=== PATIENT | female | born 1990 | race African-American/Black ===

== ENCOUNTER 2016-11-12 18:28 | Observation (INO) | payer MEDICAID ==
[~2016-11-12] VITALS: Ht 165.1 cm; Wt 82.6 kg
[2016-11-12] MEDS ORDERED: PREN-88 PO (19:10)
== END 2016-11-12 20:50 | disposition home or self-care (01) ==
LOC: L&D 18:28
PROVIDERS: ADMIT Obstetrics & Gynecology; ATTEND Obstetrics & Gynecology
DX: O26.893 Other specified pregnancy related conditions, third trimester (principal); R10.30 Lower abdominal pain, unspecified; Z3A.36 36 weeks gestation of pregnancy
CPT/HCPCS: 99281; G0378

== ENCOUNTER 2016-11-30 12:36 | Inpatient (IN) | payer MEDICAID, OTHER ==
[~2016-11-30] VITALS: Ht 165.1 cm; Wt 82.6 kg
[~2016-11-30 12:36] MED LIST: PREN-88 PO
[2016-11-30] MEDS ORDERED: DEXT 5%/LR + PITOCIN 20UNITS/L 1,000 ML IV SCH ×2 (12:54→13:49)
[2016-11-30] MEDS ORDERED: LIDOCAINE HCL 1% 20ML VIAL (Pyxis) INJ INFIL SCH (13:00)
[2016-11-30] MEDS ORDERED: METHYLERGONOVINE MALEATE 0.2 MG/ML IM PRN ×2 (13:00→14:00)
[2016-11-30] MEDS ORDERED: BUTORPHANOL TARTRATE 2 MG/ML VIAL IV PRN (13:00)
[2016-11-30] MEDS ORDERED: NALOXONE HCL 0.4 MG/ML 1ML VIAL IM PRN (13:00)
[2016-11-30] MEDS ORDERED: CARBOPROST TROMETHAMINE 250 MCG/ML AMPUL IM PRN (13:00)
[2016-11-30] MEDS ORDERED: LACTATED RINGERS 1,000 ML IV SCH (13:15)
[2016-11-30 13:39] LABS: BASOPHILS % 0.4 % (0.0-2.0); EOSINOPHILS % 0.6 % (0.0-5.0); HEMATOCRIT. 33.8 % (36.0-48.0); HEMOGLOBIN. 11.1 g/dL (12.0-16.0); LYMPHOCYTES % 21.5 % (20.0-50.0); MEAN CORPUSCULAR VOLUME 88.1 fL (81.0-99.0); MEAN PLATELET VOLUME 11.5 fl (7.4-10.4); MONOCYTES % 9.1 % (2.0-8.0); NEUTROPHILS % 68.4 % (40.0-76.0); PLATELET 125 x1000/uL (130-400); RED BLOOD CELL COUNT 3.84 mill/uL (4.2-5.4); RED CELL DISTRIBUTION WIDTH 16.3 % (11.6-14.6)
[2016-11-30 14:00] LABS: *AMPHETAMINES SCREEN URINE NEGATIVE (NEGATIVE); *BARBITURATES SCREEN URINE NEGATIVE (NEGATIVE); *BENZODIAZEPINES SCREEN URINE NEGATIVE (NEGATIVE); *COCAINE SCREEN URINE NEGATIVE (NEGATIVE); CANNABINOID URINE SCREEN NEGATIVE (NEGATIVE); METHADONE URINE SCREEN NEGATIVE (NEGATIVE); OPIATES URINE SCREEN NEGATIVE (NEGATIVE); PHENCYCLIDINE URINE SCREEN NEGATIVE (NEGATIVE)
[2016-11-30] MEDS ORDERED: BENZOCAINE/LANOLIN/ALOE VERA SPRAY TOP PRN (14:00)
[2016-11-30] MEDS ORDERED: ACETAMINOPHEN WITH CODEINE 300/30MG TABLET PO PRN (14:00)
[2016-11-30] MEDS ORDERED: LANOLIN OINT 0.25 GM TUBE TOP PRN (14:00)
[2016-11-30] MEDS ORDERED: IBUPROFEN 400MG TABLET PO PRN (14:00)
[2016-11-30 14:02] LABS: INR 0.9; PROTHROMBIN TIME 9.7 sec (9.4-11.6)
[2016-11-30 14:21] LABS: HEPATITIS B SURFACE ANTIGEN NEGATIVE; RUBELLA IGG 101.9 IU/mL (4.99-10)
[2016-11-30 16:00] VITALS: BP 112/59
[2016-11-30 16:30] VITALS: BP 107/62
[2016-11-30 17:00] VITALS: BP 118/69
[2016-11-30 19:45] VITALS: BP 106/65
[2016-12-01 05:30] VITALS: BP 99/56
[2016-12-01 06:46] LABS: BASOPHILS % 0.3 % (0.0-2.0); EOSINOPHILS % 0.7 % (0.0-5.0); HEMATOCRIT. 29.8 % (36.0-48.0); HEMOGLOBIN. 9.6 g/dL (12.0-16.0); LYMPHOCYTES % 12.5 % (20.0-50.0); MEAN CORPUSCULAR HEMOGLOBIN 28.9 pg (28.0-32.0); MEAN CORPUSCULAR VOLUME 89.7 fL (81.0-99.0); MEAN PLATELET VOLUME 11.3 fl (7.4-10.4); MONOCYTES % 8.9 % (2.0-8.0); NEUTROPHILS % 77.6 % (40.0-76.0); PLATELET 109 x1000/uL (130-400); RED BLOOD CELL COUNT 3.32 mill/uL (4.2-5.4); RED CELL DISTRIBUTION WIDTH 16.6 % (11.6-14.6)
[2016-12-01 08:30] VITALS: BP 95/52
[2016-12-01] MEDS: ACETAMINOPHEN WITH CODEINE 300/30MG TABLET PO PRN ×2 (09:35→21:18)
[2016-12-01] MEDS: PRENATAL VIT/FE FUMARATE/FA TABLET PO SCH (09:35)
[2016-12-01] MEDS ORDERED: FERROUS SULFATE 325MG TABLET PO SCH (12:10)
[2016-12-01 17:48] VITALS: BP 105/56
[2016-12-01 23:15] VITALS: BP 105/61
[2016-12-02 08:00] VITALS: BP 103/59
[2016-12-02] MEDS: PRENATAL VIT/FE FUMARATE/FA TABLET PO SCH (09:44)
[2016-12-02] MEDS ORDERED: DOCUSATE SODIUM 100MG CAPSULE PO SCH (10:00)
[2016-12-02] MEDS ORDERED: TETANUS, DIPHTHERIA, PERTUSSIS VAC/PF 0.5ML (>7YR OLD) IM ONE (10:00)
== END 2016-12-02 11:30 | disposition home or self-care (01) | DRG 560 ==
LOC: OBSVTOIN 12:36 → L&D 12:36 → 7EST PP/OB 15:41
PROVIDERS: ADMIT Specialist; ATTEND Specialist
PROC: 0KQM0ZZ Repair Perineum Muscle, Open Approach (ICD-10-PCS; 2016-11-30)
PROC: 10E0XZZ Delivery of Products of Conception, External Approach (ICD-10-PCS; principal; 2016-11-30 15:00)
DX: O69.81X0 Labor and delivery complicated by cord around neck, without compression, not applicable or unspecified (principal); D64.9 Anemia, unspecified; O99.02 Anemia complicating childbirth; O70.1 Second degree perineal laceration during delivery; Z3A.39 39 weeks gestation of pregnancy; Z37.0 Single live birth
CPT/HCPCS: 36415; 80305; 85025; 85610; 85730; 86592; 86703; 86762; 86850; 86900; 87340; 90715; J2590; J3490; J7120

== ENCOUNTER 2022-10-07 13:18 | Emergency (ER) | payer MEDICAID ==
[~2022-10-07] VITALS: Ht 165.1 cm; Wt 77.0 kg
[2022-10-07 13:21] VITALS: BP 121/72; PULSE 85; RESP 14; O2SAT 100
[2022-10-07 14:12] LABS: CLARITY URINE CLEAR (CLEAR); COLOR URINE YELLOW (YELLOW); KETONES URINE NEGATIVE (NEGATIVE); LEUKOCYTE ESTERASE URINE TRACE (NEGATIVE); NITRITE URINE NEGATIVE (NEGATIVE); OCCULT BLOOD URINE NEGATIVE (NEGATIVE); PH URINE 6.5 (4.5-8.0); PROTEIN URINE NEGATIVE (NEGATIVE); SPECIFIC GRAVITY URINE 1.028 (1.005-1.030)
[2022-10-07] MEDS ORDERED: ACETAMINOPHEN 325MG TABLET PO PRN (15:30)
[2022-10-07 15:48] LABS: BASOPHILS % 0.6 % (0.0-2.0); EOSINOPHILS % 1.5 % (0.0-5.0); HEMATOCRIT. 27.5 % (36.0-48.0); HEMOGLOBIN. 8.8 g/dL (12.0-16.0); LYMPHOCYTES % 23.2 % (20.0-50.0); MEAN CORPUSCULAR HEMOGLOBIN 27.2 pg (28.0-32.0); MEAN CORPUSCULAR VOLUME 84.7 fL (81.0-99.0); MEAN PLATELET VOLUME 10.5 fl (7.4-10.4); MONOCYTES % 9.3 % (2.0-8.0); NEUTROPHILS % 65.4 % (40.0-76.0); PLATELET 177 x1000/uL (130-400); RED BLOOD CELL COUNT 3.25 mill/uL (4.2-5.4); RED CELL DISTRIBUTION WIDTH 18.5 % (11.6-14.6)
[2022-10-07 15:54] LABS: CHLORIDE 109 mEq/L (98-107)
[2022-10-07 16:06] VITALS: TEMP 98.7
[2022-10-07 16:17] LABS: B-HCG QUANTITATIVE 26191 mIU/mL (<3)
[2022-10-07] MEDS ORDERED: CEPHALEXIN 250MG CAPSULE PO NR (16:45)
[2022-10-07] MEDS ORDERED: ACET-2708 MT (17:08)
[2022-10-07] MEDS ORDERED: CEPH500C2 MT (17:08)
== END 2022-10-07 17:15 | disposition home or self-care (01) ==
LOC: ER 13:18
DX: O23.41 Unspecified infection of urinary tract in pregnancy, first trimester (principal); N39.0 Urinary tract infection, site not specified; Z3A.13 13 weeks gestation of pregnancy
CPT/HCPCS: 36415; 76801; 80053; 81003; 81025; 84702; 85025; 86850; 86900; 99284